=== PATIENT | male | born 1955 | race Caucasian/White ===

== ENCOUNTER 2022-03-26 10:06 | Outpatient (CLI) | payer MEDICARE, BC | END 2022-03-26 23:59 | disposition home or self-care (01) | LOC: RAD 10:06 | PROVIDERS: ATTEND Student in an Organized Health Care Education/Training Program | DX: J43.2 Centrilobular emphysema (principal); I77.810 Thoracic aortic ectasia; I70.0 Atherosclerosis of aorta; M51.34 Other intervertebral disc degeneration, thoracic region; Z87.891 Personal history of nicotine dependence | CPT/HCPCS: 71250 ==